=== PATIENT | female | born 1940 | race Hispanic/Latino ===

== ENCOUNTER 2019-01-30 23:49 | Emergency (ER) | payer MEDICARE ==
[~2019-01-30 23:49] MED LIST: AMIDATE IV ONE; ZEMURON IV ONE
[2019-01-31] MEDS ORDERED: KEPPRA 1,000 MG/NS 0.75% 100ML 1,000 MG/100 ML BAG IV ONE (00:06)
[2019-01-31] MEDS ORDERED: NACL 0.9% 1000 ML 1,000 ML IV ONE (00:16)
[2019-01-31] MEDS ORDERED: ATIVAN ONE (00:26)
[2019-01-31] MEDS ORDERED: NACL 0.9% 1000 ML IV ONE (00:39)
[2019-01-31] MEDS ORDERED: VANCOMYCIN 2,000 MG in NACL 0.9% 500 ML 500 ML IV ONE (00:39)
[2019-01-31] MEDS ORDERED: AMIDATE IV ONE (00:41)
[2019-01-31] MEDS ORDERED: SUBLIMAZE IV PRN (00:41)
[2019-01-31] MEDS ORDERED: VASELINE LIP THERAPY TP PRN (00:41)
[2019-01-31] MEDS ORDERED: ZEMURON IV ONE (00:41)
[2019-01-31] MEDS ORDERED: ARTIFICIAL TEARS OPHTH OINT OU PRN (00:41)
[2019-01-31] MEDS ORDERED: ATIVAN IV PRN (00:41)
[2019-01-31] MEDS ORDERED: CEREBYX IV ONE ×2 (00:42→01:00)
[2019-01-31 00:50] LABS: Hematocrit 37.6 % (30.3-42.9); Hemoglobin 12.3 gm/dl (10.1-14.3); Mean Corpuscular Volume 98 fl (79-97); Red Blood Count 3.85 M/mm3 (3.65-5.03)
[2019-01-31 00:51] LABS: Mean Corpuscular HGB Conc 33 % (30-34); Mean Platelet Volume 9.4 fl (6-12); Platelet Count 351 K/mm3 (140-440); Red Cell Distribution Width 13.5 % (13.2-15.2)
[2019-01-31 00:52] LABS: INR 1.09 (0.87-1.13)
--- NOTE | 2019-01-31 00:52 | Emergency Department Report ---
ED General Adult HPI - General Chief complaint: Seizure Stated complaint: SEIZURE Time Seen by Provider: 01/31/19 00:02 Source: EMS (verbal report received from EMS.ems notes not available at time of chart dictation), RN notes reviewed, old records reviewed Mode of arrival: Stretcher Limitations: Altered Mental Status, Physical Limitation - History of Present Illness Initial comments: This is a 78-year-old female. The patient reportedly has a history of stroke, left MCA infarct, seizure disorder, reportedly on Keppra, brought to the hospital by EMS for seizures. As per verbal report from EMS, patient had 3 generalized tonic-clonic seizures today. There is reportedly no antecedent trauma. Patient found in bed with a seizure. EMS reports normal Accu-Chek. EMS gave intranasal Ativan which terminated the patient's seizures. Upon arrival to the ER, the patient is altered and not able to provide additional history. There is at this point in time no close documentation that addresses advanced directives or goals of care. While in the ER, the patient reportedly had another seizure. This was not witnessed by me. It was brought to my attention by nursing team. I immediately went to go evaluate the patient. The patient had desaturated to 10% on a nonrebreather. Her eyes were fixed to the right. She did not have a gag reflex. Given that patient has reportedly had multiple seizures today, without gnosticist of normal mental status, given that she is hypoxic, without a gag reflex, the patient is intubated. Patient placed on nasal cannula at 15 L/m. Patient receives aggressive bag valve mask ventilation, and is preoxygenated to 98%. Towel rolls are placed underneath the shoulders, to align the ear to the sternal notch. Direct laryngoscopy performed with a curved Chai 4 blade, and a 7.5 endotracheal tube is inserted by myself into the trachea, without difficulty or complication. The patient tolerated this procedure adequately. Post intubation, she is found to be somewhat hypothermic with a core temperature of 95.4 rectally. Question environmental exposure versus sepsis versus other. Active patient warming ordered. Patient was ordered for keppra, and subsequently fosphenytoin. Screening laboratory studies, CT scan of the brain, abdomen/pelvis ordered. Neurology consult is requested. IV fluids ordered. Prior to intubation, the patient is altered, and not able to describe the exacerbating or relieving factors to her presentation, qualitative nature of her symptoms, or other open and close ended questions. No additional history is available at this time. -: unknown Radiation: other Quality: other Consistency: other Improves with: other Worsens with: other Associated Symptoms: other - Related Data Home Medications Medication Instructions Recorded Confirmed Last Taken Haloperidol [Haldol] 5 mg PO BID 02/03/18 02/03/18 Unknown OLANZapine 5 mg PO QHS 02/03/18 02/03/18 Unknown amLODIPine [Norvasc] 5 mg PO DAILY 02/03/18 02/03/18 Unknown levETIRAcetam [Keppra] 500 mg PO BID 02/03/18 02/03/18 Unknown Previous Rx's Medication Instructions Recorded Last Taken Type FLUoxetine [Prozac] 5 mg PO QDAY oral.liqd 02/05/18 Unknown Rx cephALEXin [Keflex] 500 mg PO Q8HR #30 cap 02/05/18 Unknown Rx Allergies Allergy/AdvReac Type Severity Reaction Status Date / Time No Known Allergies Allergy Verified 02/03/18 11:38 ED Review of Systems ROS: Stated complaint: SEIZURE Other details as noted in HPI Comment: Unobtainable due to pts medical conditions ED Past Medical Hx - Past Medical History Previous Medical History?: Yes Hx CVA: Yes Hx Seizures: Yes - Surgical History Past Surgical History?: No - Social History Smoking Status: Unknown if ever smoked - Medications Home Medications: Home Medications Medication Instructions Recorded Confirmed Last Taken Type Haloperidol [Haldol] 5 mg PO BID 02/03/18 02/03/18 Unknown History OLANZapine 5 mg PO QHS 02/03/18 02/03/18 Unknown History amLODIPine [Norvasc] 5 mg PO DAILY 02/03/18 02/03/18 Unknown History levETIRAcetam [Keppra] 500 mg PO BID 02/03/18 02/03/18 Unknown History FLUoxetine [Prozac] 5 mg PO QDAY oral.liqd 02/05/18 Unknown Rx cephALEXin [Keflex] 500 mg PO Q8HR #30 cap 02/05/18 Unknown Rx ED Physical Exam - General Limitations: Physical Limitation General appearance: obtunded - Head Head exam: Present: atraumatic, normocephalic - Eye Eye exam: Present: normal appearance, PERRL, EOMI - ENT ENT exam: Present: normal orophraynx, mucous membranes moist, normal external ear exam - Neck Neck exam: Present: normal inspection, full ROM. Absent: tenderness, men ingismus - Respiratory Respiratory exam: Present: respiratory distress, rhonchi - Cardiovascular Cardiovascular Exam: Present: normal rhythm, tachycardia, normal heart sounds. Absent: systolic murmur, diastolic murmur, rubs, gallop - GI/Abdominal GI/Abdominal exam: Present: soft. Absent: distended, tenderness, guarding, rebound, rigid, bruit - Rectal Rectal exam: Present: normal inspection, other (chaperoned by nurse Katelyn Sanders) - External exam: Present: normal external exam - Extremities Exam Extremities exam: Present: normal inspection, other (2+ pulses noted in the bilateral upper, lower extremities. Compartments soft. No long bony tenderness. The pelvis is stable.). Absent: tenderness, pedal edema, joint swelling, calf tenderness - Back Exam Back exam: Present: normal inspection. Absent: tenderness, CVA tenderness (R), CVA tenderness (L), paraspinal tenderness, vertebral tenderness - Neurological Exam Neurological exam: Present: altered (on my initial evaluation, the patient has a GCS of 3) - Skin Skin exam: Present: warm, dry, intact, normal color. Absent: rash ED Course Vital Signs 01/30/19 01/31/19 01/31/19 23:59 00:00 00:15 Temperature Pulse Rate 104 H 106 H 103 H Respiratory 17 16 15 Rate Blood Pressure 104/46 87/49 O2 Sat by Pulse 91 92 Oximetry 01/31/19 01/31/19 01/31/19 00:30 00:46 01:09 Temperature Pulse Rate 101 H 112 H 101 H Respiratory 14 9 L 20 Rate Blood Pressure 98/52 96/51 113/62 O2 Sat by Pulse 88 98 100 Oximetry 01/31/19 01/31/19 01/31/19 01:15 01:19 01:30 Temperature Pulse Rate 99 H 96 H 101 H Respiratory 20 20 Rate Blood Pressure 115/66 129/88 131/77 O2 Sat by Pulse 100 100 100 Oximetry 01/31/19 01/31/19 01/31/19 01:37 01:45 02:00 Temperature 95.5 F L Pulse Rate 97 H 67 Respiratory 20 20 Rate Blood Pressure 155/88 67/43 O2 Sat by Pulse 100 100 Oximetry 01/31/19 01/31/19 01/31/19 02:10 02:16 02:29 Temperature Pulse Rate 83 81 Respiratory 20 20 Rate Blood Pressure 129/83 133/78 O2 Sat by Pulse 100 100 Oximetry 01/31/19 01/31/19 01/31/19 02:30 02:46 03:00 Temperature 95.5 F L Pulse Rate 87 87 100 H Respiratory 19 20 20 Rate Blood Pressure 150/80 140/92 132/91 O2 Sat by Pulse 100 100 100 Oximetry 01/31/19 01/31/19 01/31/19 03:15 03:30 03:45 Temperature Pulse Rate 94 H 96 H 89 Respiratory 20 20 20 Rate Blood Pressure 124/77 122/71 134/77 O2 Sat by Pulse 100 99 100 Oximetry 01/31/19 01/31/19 01/31/19 04:12 04:16 04:30 Temperature Pulse Rate 89 Respiratory 20 Rate Blood Pressure 120/76 120/76 130/79 O2 Sat by Pulse 100 99 Oximetry 01/31/19 01/31/19 01/31/19 04:46 04:57 05:00 Temperature Pulse Rate 89 89 87 Respiratory 20 20 Rate Blood Pressure 134/77 118/81 140/84 O2 Sat by Pulse 100 100 99 Oximetry 01/31/19 01/31/19 05:16 05:30 Temperature 97.3 F L Pulse Rate 89 96 H Respiratory 20 20 Rate Blood Pressure 140/84 140/84 O2 Sat by Pulse 100 99 Oximetry - Reevaluation(s) Reevaluation #1: 01/31/19 00:52 Differential diagnosis, including but not limited to: Status epilepticus, pn eumonia, intracranial hemorrhage/lesion, urinary tract infection, respiratory failure, intra-abdominal infection Assessment and plan: 78-year-old female with reported multiple seizures without gnosticist of normal mental status, with acute respiratory failure and loss of gag reflex, requires intubation for airway protection. Patient will be aggressively resuscitated with IV fluids, antiepileptic drug medication, and active patient rewarming. CT scan of the brain, abdomen pelvis pending at this time. We will reassess after her data points have resulted. Reevaluation #2: 01/31/19 01:01 Discussed with neurology personal financial planner, Dr.K Norris, who recommends transfer as this facility cannot provide continuous EEG monitoring. Agrees with diagnostic workup thus far, and supportive care. Reevaluation #3: 01/31/19 02:14 Patient had episode of bradycardia, to the 30s, and hypotension to the 70s. This was after infusion of fosphenytoin. This is now resolved. Heart rate 89, blood pressure 123/70. Case discussed with neurology critical care at [place], Dr. Andrade, who accepts to their facility. The patient has an emergency medical condition which cannot be definitively managed at this hospital, as we cannot provide continuous EEG m onitoring, and we do not have neurology critical care available for consultation. The patient is medically stable for transport at this point in time. Reevaluation #4: 01/31/19 02:54 Blood pressure and heart rate appeared to be appropriate at this point in time. X-ray of the chest negative for acute disease. CT scan of the brain shows no bleed. Question subacute ischemia. We will defer to receiving facility to further evaluate this. The patient presented postictal, multiple seizures, last known well time is not known, therefore, not a TPA candidate. 01/31/19 03:39 Given that patient is meeting systemic inflammatory response syndrome, and no obvious infectious etiology has been ruled in, or ruled out, patient is emergently, and administratively consented by myself for spinal tap. Spinal tap successful. Labs sent. Reevaluation #5: 01/31/19 04:21 CSF reviewed and appreciated, not consistent with meningitis Lab Results 01/31/19 01/31/19 01/31/19 Range/Units 00:19 00:19 00:19 WBC (4.5-11.0) K/mm3 RBC (3.65-5.03) M/mm3 Hgb (10.1-14.3) gm/dl Hct (30.3-42.9) % MCV (79-97) fl MCH (28-32) pg MCHC (30-34) % RDW (13.2-15.2) % Plt Count (140-440) K/mm3 PT 13.8 (12.2-14.9) Sec. INR 1.09 (0.87-1.13) POC ABG pH (7.35-7.45) POC ABG pO2 (80-105) POC ABG HCO3 (22-26 mml/L) POC ABG Total CO2 (23-27mmol/L) POC ABG O2 Sat POC ABG Base Excess ((-2) - (+3)mmol/L) FiO2 % Sodium 135 L (137-145) mmol/L Potassium 3.6 (3.6-5.0) mmol/L Chloride 96.0 L (98-107) mmol/L Carbon Dioxide 15 L (22-30) mmol/L Anion Gap 28 mmol/L BUN 11 (7-17) mg/dL Creatinine 1.1 (0.7-1.2) mg/dL Estimated GFR 48 ml/min BUN/Creatinine Ratio 10 % Glucose 193 H (65-100) mg/dL Lactic Acid Calcium 9.2 (8.4-10.2) mg/dL Magnesium 2.10 (1.7-2.3) mg/dL Total Creatine Kinase 199 H (30-135) units/L Troponin T (0.00-0.029) ng/mL Urine Color (Yellow) Urine Turbidity (Clear) Urine pH (5.0-7.0) Ur Specific [place] (1.003-1.030) Urine Protein (Negative) mg/dL Urine Glucose (UA) (Negative) mg/dL Urine Ketones (Negative) mg/dL Urine Blood (Negative) Urine Nitrite (Negative) Urine Bilirubin (Negative) Urine Urobilinogen (<2.0) mg/dL Ur Leukocyte Esterase (Negative) Urine WBC (Auto) (0.0-6.0) /HPF Urine RBC (Auto) (0.0-6.0) /HPF Urine Mucus /HPF CSF Appearance CSF Color CSF WBC (1-10) /mm3 CSF RBC (0-0) /mm3 CSF Glucose mg/dL CSF Total Protein mg/dL Salicylates (2.8-20.0) mg/dL Acetaminophen (10.0-30.0) ug/mL Plasma/Serum Alcohol (0-0.07) % 01/31/19 01/31/19 01/31/19 Range/Units 00:19 00:19 00:19 WBC 15.5 H (4.5-11.0) K/mm3 RBC 3.85 (3.65-5.03) M/mm3 Hgb 12.3 (10.1-14.3) gm/dl Hct 37.6 (30.3-42.9) % MCV 98 H (79-97) fl MCH 32 (28-32) pg MCHC 33 (30-34) % RDW 13.5 (13.2-15.2) % Plt Count 351 (140-440) K/mm3 PT (12.2-14.9) Sec. INR (0.87-1.13) POC ABG pH (7.35-7.45) POC ABG pO2 (80-105) POC ABG HCO3 (22-26 mml/L) POC ABG Total CO2 (23-27mmol/L) POC ABG O2 Sat POC ABG Base Excess ((-2) - (+3)mmol/L) FiO2 % Sodium (137-145) mmol/L Potassium (3.6-5.0) mmol/L Chloride (98-107) mmol/L Carbon Dioxide (22-30) mmol/L Anion Gap mmol/L BUN (7-17) mg/dL Creatinine (0.7-1.2) mg/dL Estimated GFR ml/min BUN/Creatinine Ratio % Glucose (65-100) mg/dL Lactic Acid Calcium (8.4-10.2) mg/dL Magnesium (1.7-2.3) mg/dL Total Creatine Kinase (30-135) units/L Troponin T (0.00-0.029) ng/mL Urine Color (Yellow) Urine Turbidity (Clear) Urine pH (5.0-7.0) Ur Specific [place] (1.003-1.030) Urine Protein (Negative) mg/dL Urine Glucose (UA) (Negative) mg/dL Urine Ketones (Negative) mg/dL Urine Blood (Negative) Urine Nitrite (Negative) Urine Bilirubin (Negative) Urine Urobilinogen (<2.0) mg/dL Ur Leukocyte Esterase (Negative) Urine WBC (Auto) (0.0-6.0) /HPF Urine RBC (Auto) (0.0-6.0) /HPF Urine Mucus /HPF CSF Appearance CSF Color CSF WBC (1-10) /mm3 CSF RBC (0-0) /mm3 CSF Glucose mg/dL CSF Total Protein mg/dL Salicylates < 0.3 L (2.8-20.0) mg/dL Acetaminophen < 5.0 L (10.0-30.0) ug/mL Plasma/Serum Alcohol (0-0.07) % 01/31/19 01/31/19 01/31/19 Range/Units 00:19 00:47 00:47 WBC (4.5-11.0) K/mm3 RBC (3.65-5.03) M/mm3 Hgb (10.1-14.3) gm/dl Hct (30.3-42.9) % MCV (79-97) fl MCH (28-32) pg MCHC (30-34) % RDW (13.2-15.2) % Plt Count (140-440) K/mm3 PT (12.2-14.9) Sec. INR (0.87-1.13) POC ABG pH (7.35-7.45) POC ABG pO2 (80-105) POC ABG HCO3 (22-26 mml/L) POC ABG Total CO2 (23-27mmol/L) POC ABG O2 Sat POC ABG Base Excess ((-2) - (+3)mmol/L) FiO2 % Sodium (137-145) mmol/L Potassium (3.6-5.0) mmol/L Chloride (98-107) mmol/L Carbon Dioxide (22-30) mmol/L Anion Gap mmol/L BUN (7-17) mg/dL Creatinine (0.7-1.2) mg/dL Estimated GFR ml/min BUN/Creatinine Ratio % Glucose (65-100) mg/dL Lactic Acid TNR Calcium (8.4-10.2) mg/dL Magnesium (1.7-2.3) mg/dL Total Creatine Kinase (30-135) units/L Troponin T < 0.010 (0.00-0.029) ng/mL Urine Color (Yellow) Urine Turbidity (Clear) Urine pH (5.0-7.0) Ur Specific [place] (1.003-1.030) Urine Protein (Negative) mg/dL Urine Glucose (UA) (Negative) mg/dL Urine Ketones (Negative) mg/dL Urine Blood (Negative) Urine Nitrite (Negative) Urine Bilirubin (Negative) Urine Urobilinogen (<2.0) mg/dL Ur Leukocyte Esterase (Negative) Urine WBC (Auto) (0.0-6.0) /HPF Urine RBC (Auto) (0.0-6.0) /HPF Urine Mucus /HPF CSF Appearance CSF Color CSF WBC (1-10) /mm3 CSF RBC (0-0) /mm3 CSF Glucose mg/dL CSF Total Protein mg/dL Salicylates (2.8-20.0) mg/dL Acetaminophen (10.0-30.0) ug/mL Plasma/Serum Alcohol < 0.01 (0-0.07) % 01/31/19 01/31/19 01/31/19 Range/Units 01:47 02:13 02:24 WBC (4.5-11.0) K/mm3 RBC (3.65-5.03) M/mm3 Hgb (10.1-14.3) gm/dl Hct (30.3-42.9) % MCV (79-97) fl MCH (28-32) pg MCHC (30-34) % RDW (13.2-15.2) % Plt Count (140-440) K/mm3 PT (12.2-14.9) Sec. INR (0.87-1.13) POC ABG pH 7.392 (7.35-7.45) POC ABG pO2 197 H (80-105) POC ABG HCO3 13.6 (22-26 mml/L) POC ABG Total CO2 14 (23-27mmol/L) POC ABG O2 Sat 100 POC ABG Base Excess -11 ((-2) - (+3)mmol/L) FiO2 70 % Sodium (137-145) mmol/L Potassium (3.6-5.0) mmol/L Chloride (98-107) mmol/L Carbon Dioxide (22-30) mmol/L Anion Gap mmol/L BUN (7-17) mg/dL Creatinine (0.7-1.2) mg/dL Estimated GFR ml/min BUN/Creatinine Ratio % Glucose (65-100) mg/dL Lactic Acid 6.90 H* Calcium (8.4-10.2) mg/dL Magnesium (1.7-2.3) mg/dL Total Creatine Kinase (30-135) units/L Troponin T (0.00-0.029) ng/mL Urine Color Colorless (Yellow) Urine Turbidity Clear (Clear) Urine pH 6.0 (5.0-7.0) Ur Specific [place] 1.008 (1.003-1.030) Urine Protein <15 mg/dl (Negative) mg/dL Urine Glucose (UA) 50 (Negative) mg/dL Urine Ketones Neg (Negative) mg/dL Urine Blood Mod (Negative) Urine Nitrite Neg (Negative) Urine Bilirubin Neg (Negative) Urine Urobilinogen < 2.0 (<2.0) mg/dL Ur Leukocyte Esterase Neg (Negative) Urine WBC (Auto) < 1.0 (0.0-6.0) /HPF Urine RBC (Auto) 1.0 (0.0-6.0) /HPF Urine Mucus Few /HPF CSF Appearance CSF Color CSF WBC (1-10) /mm3 CSF RBC (0-0) /mm3 CSF Glucose mg/dL CSF Total Protein mg/dL Salicylates (2.8-20.0) mg/dL Acetaminophen (10.0-30.0) ug/mL Plasma/Serum Alcohol (0-0.07) % 01/31/19 01/31/19 Range/Units Unknown Unknown WBC (4.5-11.0) K/mm3 RBC (3.65-5.03) M/mm3 Hgb (10.1-14.3) gm/dl Hct (30.3-42.9) % MCV (79-97) fl MCH (28-32) pg MCHC (30-34) % RDW (13.2-15.2) % Plt Count (140-440) K/mm3 PT (12.2-14.9) Sec. INR (0.87-1.13) POC ABG pH (7.35-7.45) POC ABG pO2 (80-105) POC ABG HCO3 (22-26 mml/L) POC ABG Total CO2 (23-27mmol/L) POC ABG O2 Sat POC ABG Base Excess ((-2) - (+3)mmol/L) FiO2 % Sodium (137-145) mmol/L Potassium (3.6-5.0) mmol/L Chloride (98-107) mmol/L Carbon Dioxide (22-30) mmol/L Anion Gap mmol/L BUN (7-17) mg/dL Creatinine (0.7-1.2) mg/dL Estimated GFR ml/min BUN/Creatinine Ratio % Glucose (65-100) mg/dL Lactic Acid Calcium (8.4-10.2) mg/dL Magnesium (1.7-2.3) mg/dL Total Creatine Kinase (30-135) units/L Troponin T (0.00-0.029) ng/mL Urine Color (Yellow) Urine Turbidity (Clear) Urine pH (5.0-7.0) Ur Specific [place] (1.003-1.030) Urine Protein (Negative) mg/dL Urine Glucose (UA) (Negative) mg/dL Urine Ketones (Negative) mg/dL Urine Blood (Negative) Urine Nitrite (Negative) Urine Bilirubin (Negative) Urine Urobilinogen (<2.0) mg/dL Ur Leukocyte Esterase (Negative) Urine WBC (Auto) (0.0-6.0) /HPF Urine RBC (Auto) (0.0-6.0) /HPF Urine Mucus /HPF CSF Appearance Clear CSF Color Colorless CSF WBC 1 (1-10) /mm3 CSF RBC 0 (0-0) /mm3 CSF Glucose 98 mg/dL CSF Total Protein 63 mg/dL Salicylates (2.8-20.0) mg/dL Acetaminophen (10.0-30.0) ug/mL Plasma/Serum Alcohol (0-0.07) % - Consultations Consultation #1: 01/31/19 04:50 CT scan of the abdomen and pelvis reviewed and appreciated. Bilateral lower lobe consolidations may be secondary to aspiration, poor alveolar recruitment, or lung Derecruitment. No other acute processes noted. - Intubation Time Out Performed: No (emergency) Sedative: Etomidate Mg Given: 20 Paralytic: Rocuronium Mg Given: 100 Laryngoscope: Chai Size: 4 ET Tube Size: 7.5 Tube Secured Depth (cm): 23 Tube Secured Location: lips Tube Placement Confirmation: visualized tube passing t, equal breath sounds bilat, no breath sounds over epi, confirmation by capnometr Patient Tolerated Procedure: well Intubation Complications: none Additional Comments: Patient placed on nasal cannula at 15 L/m. Patient receives aggressive bag valve mask ventilation, and is preoxygenated to 98%. Towel rolls are placed underneath the shoulders, to align the ear to the sternal notch. Direct laryngoscopy performed with a curved Chai 4 blade, and a 7.5 endotracheal tube is inserted by myself into the trachea, without difficulty or complication. The patient tolerated this procedure adequately. - Lumbar Puncture Consent Obtained: emergent situation Time Out Performed: Yes Indication for Procedure: change in mental status Patient Position: left lateral decubitus Skin Prep: Povidone-Iodine 1% Local Anesthetic Used: Lidocaine 2% Amount of anesthesia used (mls): 6 Spinal Needle Gauge: 20G Spinal Needle Length: 3.5in Interspace Used: L4-L5 Fluid Initially Obtained: cloudy Complications: none Patient Tolerated Procedure: well ED Medical Decision Making - Lab Data Result diagrams: 01/31/19 00:19 01/31/19 00:19 Lab Results 01/31/19 01/31/19 Range/Units 00:19 00:19 WBC 15.5 H (4.5-11.0) K/mm3 RBC 3.85 (3.65-5.03) M/mm3 Hgb 12.3 (10.1-14.3) gm/dl Hct 37.6 (30.3-42.9) % MCV 98 H (79-97) fl MCH 32 (28-32) pg MCHC 33 (30-34) % RDW 13.5 (13.2-15.2) % Plt Count 351 (140-440) K/mm3 PT 13.8 (12.2-14.9) Sec. INR 1.09 (0.87-1.13) - Radiology Data Radiology results: report reviewed, image reviewed Print Report Referring Physician: QUENTIN LACKEY Patient Name: JAMAAL MANCUSO Date of : 1940 Sex: Female Report Date: 2019-01-31 Report Status: [place] [address] Cat Scan Report Signed Patient: JAMAAL MANCUSO MR#: [id number] : 1940 Acct:[id number] Age/Sex: 78 / F ADM Date: 01/30/19 Loc: ED Attending Dr: Ordering Physician: QUENTIN LACKEY MD Date of Service: 01/31/19 Procedure(s): CT head/brain wo con Accession Number(s): [id number] cc: QUENTIN LACKEY MD Head CT without intravenous contrast INDICATION: Seizure COMPARISON: 02/03/2018 FINDINGS: The ventricles are normal in size and position. No hemorrhage or extra-axial fluid collection. No edema or mass effect. There are several new areas of white matter low attenuation in the high right frontal parietal region. These could represent areas of recent ischemia. Portions of the sinuses visuali zed are clear. No skull fracture identified. There is a remote left temporoparietal stroke. IMPRESSION: Remote left temporoparietal infarct. Areas of ischemia in the right frontoparietal region. No hemorrhage is seen. Automated exposure control was utilized to diminish radiation dose Signer Name: Demetris Franklin MD Signed: 01/31/2019 2:39 AM Workstation Name: [id number] Transcribed By: AMANDA Dictated By: Demetris Franklin MD Electronically Authenticated By: Demetris Franklin MD Signed Date/Time: 01/31/19 0239 Critical Care Time: Yes Critical care time in (mins) excluding proc time.: 60 Critical care attestation.: If time is entered above; I have spent that time in minutes in the direct care of this critically ill patient, excluding procedure time. ED Disposition Clinical Impression: Acute respiratory failure, Status epilepticus Disposition[id number] IP Is pt being admited?: No Does the pt Need Aspirin: No Condition: Critical Referrals: MAGDALENO MARI MD [Primary Care Provider] - 3-5 Days
[2019-01-31 00:55] LABS: Calcium 9.2 mg/dL (8.4-10.2)
[2019-01-31] MEDS ORDERED: [UNRECOGNIZED DRUG - OTHER] IV ONE (01:00)
[2019-01-31] MEDS ORDERED: ATIVAN 100 MG in NACL 0.9% 50 ML, VIAFLEX EMPTY CONTAINER 0 ML IV SCH (01:00)
[2019-01-31] MEDS ORDERED: fentaNYL DRIP Premix 2,000 MCG/100 ML BAG IV SCH (01:00)
[2019-01-31] MEDS ORDERED: NACL IV ONE (01:00)
[2019-01-31] MEDS ORDERED: VANCOMYCIN PHARMACY TO DOSE IV SCH (01:00)
[2019-01-31] MEDS ORDERED: ROCEPHIN/NS 2 GM/100 ML 2 GM/100 ML BAG IV SCH (01:00)
--- NOTE | 2019-01-31 02:43 | Cat Scan Report ---
Head CT without intravenous contrast INDICATION: Seizure COMPARISON: 02/03/2018 FINDINGS: The ventricles are normal in size and position. No hemorrhage or extra-axial fluid collecti on. No edema or mass effect. There are several new areas of white matter low attenuation in the high right frontal parietal region. These could represent areas of recent ischemia. Portions of the sinuse s visualized are clear. No skull fracture identified. There is a remote left temporoparietal stroke. IMPRESSION: Remote left temporoparietal infarct. Areas of ischemia in the right frontoparietal region. No hemorrhage is seen. Automated exposure control was utilized to diminish radiation dose Signer Name: Demetris Franklin MD Signed: 01/31/2019 2:39 AM Workstation Name: [id number]
--- NOTE | 2019-01-31 02:50 | XRay Report ---
CHEST 1 VIEW INDICATION / CLINICAL INFORMATION: ett placement. COMPARISON: 05/16/2018 FINDINGS: SUPPORT DEVICES: Endotracheal tube is in good position above the emmanuel. HEART / MEDIASTINUM: No significant abnormality. LUNGS / PLEURA: No significant pulmonary or pleural abnormality. No pneumothorax. ADDITIONAL FINDINGS: No significant additional findings. IMPRESSION: 1. No significant change Signer Name: Demetris Franklin MD Signed: 01/31/2019 2:45 AM Workstation Name: [id number]
[2019-01-31 03:02] LABS: Bilirubin,Urine NEG (Negative); Blood,Urine MOD (Negative); Color,Urine Colorless (Yellow); Mucus,Urine FEW /HPF; Protein,Urine <15 mg/dL mg/dL (Negative); Urobilinogen,Urine < 2.0 mg/dL (<2.0)
[2019-01-31 03:05] LABS: WBC,Urine < 1.0 /HPF (0.0-6.0)
[2019-01-31] MEDS ORDERED: XYLOCAINE 2%/EPI 1:100,000 INFILTRATI ONE (03:12)
[2019-01-31] MEDS ORDERED: XYLOCAINE 1%/ EPI 1:100,000 INFILTRATI ONE (03:17)
--- NOTE | 2019-01-31 03:32 | XRay Report ---
CHEST 1 VIEW INDICATION / CLINICAL INFORMATION: og placement. COMPARISON: 0104 hours FINDINGS: SUPPORT DEVICES: Endotracheal tube is in place unchanged. NG tube is now been placed extending into t he body of the stomach appearing to be in good position. HEART / MEDIASTINUM: No significant abnormality. LUNGS / PLEURA: Only slight left basilar atelectasis is seen with the lungs and pleural spaces otherw ise clear. No pneumothorax. ADDITIONAL FINDINGS: No significant additional findings. IMPRESSION: 1 NG tube in stomach. Signer Name: Demetris Franklin MD Signed: 01/31/2019 3:28 AM Workstation Name: [id number]
[2019-01-31 04:09] LABS: Appearance,CSF Clear
[2019-01-31 04:10] LABS: Red Blood Cell,CSF 0 /mm3 (0-0); White Blood Cell,CSF 1 /mm3 (1-10)
[2019-01-31 04:14] LABS: Glucose,CSF 98 mg/dL
--- NOTE | 2019-01-31 04:37 | Cat Scan Report ---
. CT of the abdomen and pelvis without contrast INDICATION: Abdominal pain and altered mental status COMPARISON: None FINDINGS: There is slight bilateral lower lobe consolidation. Minimal pericardial effusion is present . Liver is grossly normal. Spleen shows multiple granulomas but is otherwise negative. NG tube extend s into a moderately dilated stomach which is fluid-filled. There is slight bilateral hydronephrosis. No kidney stones are seen. Perinephric stranding is nonspecific. No definite gallbladder or biliary t ree abnormality. Pancreas and adrenal glands show no definite abnormalities. No fluid or adenopathy i n the upper abdomen. CT of the pelvis shows no evidence of bowel obstruction. Appendix is seen and is normal. There is mod erate vascular calcification without aneurysm. Bladder is moderately distended. There has been prior hysterectomy. No diverticulosis or diverticulitis. IMPRESSION: Incidental findings as described but no bowel obstruction or inflammatory process seen. Automated exposure control was utilized to diminish radiation dose. Signer Name: Demetris Franklin MD Signed: 01/31/2019 4:33 AM Workstation Name: [id number]
[2019-01-31 05:12] VITALS: BP 140/84
[2019-01-31 07:23] LABS: Total Cells Counted 2 /mm3
[2019-01-31 07:47] LABS: Basophils CSF 0 %
[2019-02-01] MEDS ORDERED: VANCOMYCIN 1,500 MG in NACL 0.9% 500 ML 500 ML IV SCH (02:00)
== END 2019-01-31 06:02 | disposition short-term general hospital (02) ==
LOC: ED 23:49
DX: J80 Acute respiratory distress syndrome (principal); G40.801 Other epilepsy, not intractable, with status epilepticus; Z86.73 Personal history of transient ischemic attack (TIA), and cerebral infarction without residual deficits; Z79.899 Other long term (current) drug therapy
CPT/HCPCS: 31500; 36415; 62270; 70450; 71045; 74018; 74176; 80048; 81001; 82140; 82550; 82803; 82947; 83735; 84160; 84484; 85027; 85610; 87040; 87086; 87116; 89051; 93005; 93010; 96361; 96365; 96366; 96367; 96368; 96375; 99291; J0696; J1953; J2060; J3370; J7030; J7040; Q2009; 80320; 94002; G0480

== ENCOUNTER 2019-02-26 22:44 | Emergency (ER) | payer MEDICARE ==
--- NOTE | 2019-02-26 23:33 | XRay Report ---
AP PELVIS ONE VIEW INDICATION / CLINICAL INFORMATION: post fall, pelvis pain. COMPARISON: None available. FINDINGS: A bipolar right hip arthroplasty is present. Osteopenia is noted. There is a moderately displaced acu te fracture involving the transcervical aspect of the left femoral neck. No pelvic fracture is seen. Soft tissue gas is seen overlying the right upper thigh/hemipelvis. Signer Name: Eyad Tatum MD Signed: 02/26/2019 11:29 PM Workstation Name: [id number]
[2019-02-26] MEDS ORDERED: MORPHINE IV ONE (23:38)
[2019-02-26] MEDS ORDERED: ZOFRAN IV ONE (23:38)
--- NOTE | 2019-02-26 23:59 | Emergency Department Report ---
ED Lower Extremity HPI - General Stated Complaint: FALL AND HIT HER HEAD Time Seen by Provider: 02/26/19 22:57 - History of Present Illness Initial Comments: Patient is a 78-year-old White female with history of recent right hip fracture who presents status post ground-level fall today at alf per EMS patient struck her head complains of head and left hip pain there is mild erythema ecchymosis there is moderate ecchymosis and erythema to right hip surgical site there is no obvious deformity and there is no head bleed no laceration or abrasion no bleeding neck range of motion is intact unrestricted no pain patient has history of dementia and mentation is consistent with dementia she is allergic to self easily reoriented to time and place. MD Complaint: hip injury, fall Onset/Timin -: days(s) Injury: Hip: Left Type of Injury: blunt Place: other (Longterm Facility ) Severity: moderate Severity scale (0 -10): 5 Improves With: nothing Worsens With: weight bearing, movement, palpation Context: fall Associated Symptoms: unable to bear weight - Related Data Home Medications Medication Instructions Recorded Confirmed Last Taken Haloperidol [Haldol] 5 mg PO BID 02/03/18 02/03/18 Unknown OLANZapine 5 mg PO QHS 02/03/18 02/03/18 Unknown amLODIPine [Norvasc] 5 mg PO DAILY 02/03/18 02/03/18 Unknown levETIRAcetam [Keppra] 500 mg PO BID 02/03/18 02/03/18 Unknown Previous Rx's Medication Instructions Recorded Last Taken Type FLUoxetine [Prozac] 5 mg PO QDAY oral.liqd 02/05/18 Unknown Rx cephALEXin [Keflex] 500 mg PO Q8HR #30 cap 02/05/18 Unknown Rx Allergies Allergy/AdvReac Type Severity Reaction Status Date / Time No Known Allergies Allergy Verified 02/03/18 11:38 ED Review of Systems ROS: Stated complaint: FALL AND HIT HER HEAD Other details as noted in HPI Constitutional: denies: chills, fever Eyes: denies: eye pain, eye discharge, vision change ENT: denies: ear pain, throat pain Respiratory: denies: cough, shortness of breath, wheezing Cardiovascular: denies: chest pain, palpitations Endocrine: no symptoms reported Gastrointestinal: denies: abdominal pain, nausea, diarrhea Genitourinary: denies: urgency, dysuria, discharge Musculoskeletal: arthralgia, other (bilat hip pain mild ecchymosis ) Skin: denies: rash, lesions Neurological: confusion (this is baseline for this patient ). denies: headache, weakness, numbness, paresthesias Psychiatric: denies: anxiety, depression Hematological/Lymphatic: as per HPI ED Past Medical Hx - Past Medical History Hx CVA: Yes Hx Seizures: Yes - Social History Smoking Status: Unknown if ever smoked - Medications Home Medications: Home Medications Medication Instructions Recorded Confirmed Last Taken Type Haloperidol [Haldol] 5 mg PO BID 02/03/18 02/03/18 Unknown History OLANZapine 5 mg PO QHS 02/03/18 02/03/18 Unknown History amLODIPine [Norvasc] 5 mg PO DAILY 02/03/18 02/03/18 Unknown History levETIRAcetam [Keppra] 500 mg PO BID 02/03/18 02/03/18 Unknown History FLUoxetine [Prozac] 5 mg PO QDAY oral.liqd 02/05/18 Unknown Rx cephALEXin [Keflex] 500 mg PO Q8HR #30 cap 02/05/18 Unknown Rx ED Physical Exam - General General appearance: alert, in no apparent distress - Head Head exam: Present: normocephalic, normal inspection - Expanded Head Exam Expanded Head exam: Absent: laceration, abrasion, contusion, hematoma, racoon eyes, bazzi's sign, general tenderness, tenderness of temporal artery, CSF rhinorrhea, CSF otorrhea - Eye Eye exam: Present: normal appearance, PERRL, EOMI. Absent: conjunctival injection, nystagmus, periorbital swelling, periorbital tenderness Pupils: Present: normal accommodation - ENT ENT exam: Present: normal orophraynx, mucous membranes moist, TM's normal bilaterally, normal external ear exam - Neck Neck exam: Present: normal inspection, full ROM. Absent: tenderness (no posteriora vertebral point tenderness rom intact unrestricted ), meningismus, lymphadenopathy, thyromegaly - Respiratory Respiratory exam: Present: normal lung sounds bilaterally. Absent: respiratory distress, wheezes, stridor, chest wall tenderness - Cardiovascular Cardiovascular Exam: Present: regular rate, normal rhythm, normal heart sounds. Absent: systolic murmur, diastolic murmur, rubs, gallop - GI/Abdominal GI/Abdominal exam: Present: soft, normal bowel sounds. Absent: distended, tenderness, guarding, rebound, rigid, bruit, hernia - Rectal Rectal exam: Present: deferred - Extremities Exam Extremities exam: Present: normal inspection, full ROM, tenderness (left lateral hip, right lateral hip ), normal capillary refill. Absent: pedal edema, joint swelling, calf tenderness - Expanded Lower Extremity Exam Right Hip exam: Present: tenderness, swelling, ecchymosis, erythema, pelvic stability. Absent: laceration, deformity, crepidus, dislocation, external rotation, internal rotation, shortening Upper Leg exam: Present: full ROM. Absent: tenderness Knee exam: Present: full ROM. Absent: tenderness Lower Leg exam: Present: full ROM. Absent: tenderness Ankle exam: Present: full ROM. Absent: tenderness Foot/Toe exam: Present: full ROM. Absent: tenderness Neuro vascular tendon exam: Absent: pulse deficit, motor deficit, sensory deficit, tendon deficit Gait: Positive: unable to bear weight Left Hip exam: Present: tenderness, ecchymosis (mild left lateral hip ecchymosis ), pelvic stability. Absent: swelling, abrasion, laceration, deformity, crepidus, dislocation, erythema, external rotation, internal rotation, shortening Upper Leg exam: Present: full ROM. Absent: tenderness Knee exam: Present: full ROM. Absent: tenderness Lower Leg exam: Present: full ROM. Absent: tenderness Ankle exam: Absent: full ROM, tenderness Foot/Toe exam: Present: tenderness. Absent: swelling Neuro vascular tendon exam: Absent: pulse deficit, motor deficit, sensory deficit, tendon deficit Gait: Positive: unable to bear weight - Back Exam Back exam: Present: normal inspection, full ROM. Absent: tenderness (no posterior vertebral point tenderness ), CVA tenderness (R), CVA tenderness (L), muscle spasm, paraspinal tenderness, vertebral tenderness, rash noted - Neurological Exam Neurological exam: Present: alert, oriented X3, normal gait, reflexes normal. Absent: motor sensory deficit - Psychiatric Psychiatric exam: Present: normal affect, normal mood - Skin Skin exam: Present: warm, dry, intact, normal color. Absent: rash ED Course Vital Signs 02/26/19 02/27/19 02/27/19 23:03 00:05 00:56 Temperature 98.5 F Pulse Rate 108 H 110 H Respiratory 17 16 22 Rate Blood Pressure 155/82 168/81 [Left] O2 Sat by Pulse 97 97 Oximetry - Reevaluation(s) Reevaluation #1: There is no orbital coverage available at this facility tonight a place consult to [facility] Dr. Thomson, who performed right hip procedure, will request transfer except for a left femoral neck fracture, discussed same with power of transactional attorney and caregiver who verbalize concurrence and agreement with tx, plan. 02/27/19 00:00 02/27/19 01:12 [facility] immigration manager for Dr. Thomson advises that service cannot accept pt due to OR space not available in am. will attempt transfer to [facility], 02/27/19 01:13 [facility] has accepted pt for ED to ED transfer for Orthopedic Consult Dr. Parmar , advised POA of same advised agreement and consent, pt advised of same, pt accepted at [facility] will be transferred to [place] ED via EMS , pt waiting transport, pt is resting quitely with nad at this time. ED Lower Extremity MDM - Radiology Data Radiology results: report reviewed, image reviewed interpreted by me: moderately displaced left femoral neck fracture. - Medical Decision Making Patient accepted by [facility] [facility] Dr. Parmar awaiting transport to ED at this time except for ED the ED transfer diagnosis left humeral neck fracture be evaluated and spoke appropriately at [place] ED by orthopedic consult Dr Parmar, power of transactional attorney and next of kin notified of same verbalized agreement and understanding Critical care attestation.: If time is entered above; I have spent that time in minutes in the direct care of this critically ill patient, excluding procedure time. ED Disposition Clinical Impression: Fractured femoral neck Qualifiers: Encounter type: initial encounter Fracture type: closed Laterality: left Qualified Code(s): S72.002A - Fracture of unspecified part of neck of left femur, initial encounter for closed fracture Disposition: DC/TX-70 ANOTHER TYPE HLTHCARE Is pt being admited?: No Does the pt Need Aspirin: No Condition: Stable Instructions: Leg Fracture (ED) Time of Disposition: 01:18
[2019-02-27 00:57] VITALS: BP 168/81
--- NOTE | 2019-02-27 01:36 | Cat Scan Report ---
CT HEAD WITHOUT CONTRAST INDICATION / CLINICAL INFORMATION: fall. TECHNIQUE: All CT scans at this location are performed using CT dose reduction for ALARA by means of automated e xposure control. COMPARISON: None available. FINDINGS: HEMORRHAGE: None. EXTRA-AXIAL SPACES: Normal in size and morphology for the patient's age. VENTRICULAR SYSTEM: Normal in size and morphology for the patient's age. CEREBRAL PARENCHYMA: Encephalomalacia left temporoparietal lobe, unchanged. Extensive periventricular and deep white matter hypoattenuation is again noted characteristic for microangiopathy. MIDLINE SHIFT OR HERNIATION: None. CEREBELLUM / BRAINSTEM: No significant abnormality. ORBITS: Normal as visualized. SOFT TISSUES of HEAD: No significant abnormality. CALVARIUM: No significant abnormality. PARANASAL SINUSES / MASTOID AIR CELLS: Normal as visualized. ADDITIONAL FINDINGS: None. IMPRESSION: 1. No acute intracranial abnormality. 2. 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
--- NOTE | 2019-02-27 01:42 | Cat Scan Report ---
CT CERVICAL SPINE WITHOUT CONTRAST INDICATION: fall. TECHNIQUE: All CT scans at this location are performed using CT dose reduction for ALARA by means of automated e xposure control. Axial CT images were obtained through the cervical spine. Sagittal and coronal reformatted images we re produced. COMPARISON: None available. FINDINGS: Fracture: None. Subluxation: 4 mm degenerative anterolisthesis of C3 on C4 Spinal canal: No significant compromise. Disc spaces: Moderate discogenic degenerative disease C3-7. Facet joints: Moderate facet degenerative disease C3-7. Paraspinal soft tissues: No soft tissue swelling. Normal. Additional findings: None. Lung apices: Normal. IMPRESSION: 1. No acute cervical fracture. 2. Moderate multilevel discogenic and facet degenerative disease extending from C3-7. 3. 4 mm degenerative anterolisthesis of C3 on C4 Signer Name: Eyad Tatum MD Signed: 02/27/2019 1:37 AM Workstation Name: [id number]
== END 2019-02-27 02:00 | disposition other institution (70) ==
LOC: ED 22:44
DX: S72.002A Fracture of unspecified part of neck of left femur, initial encounter for closed fracture (principal); Z79.899 Other long term (current) drug therapy; Z86.73 Personal history of transient ischemic attack (TIA), and cerebral infarction without residual deficits; W01.198A Fall on same level from slipping, tripping and stumbling with subsequent striking against other object, initial encounter; Y93.89 Activity, other specified; Y92.128 Other place in nursing home as the place of occurrence of the external cause; Y99.8 Other external cause status
CPT/HCPCS: 70450; 72125; 72170; 96374; 96375; 99285; J2270; J2405